=== PATIENT | male | born 1975 | race Caucasian/White ===

== ENCOUNTER 2025-01-05 05:04 | Emergency (ER) | payer MEDICAID ==
[~2025-01-05] VITALS: Ht 175.3 cm; Wt 81.8 kg
[2025-01-05 05:13] VITALS: BP 111/73; PULSE 76; RESP 17; TEMP 97.5; O2SAT 98
[2025-01-05] MEDS ORDERED: DOXY-354 PO (06:18)
== END 2025-01-05 06:48 | disposition home or self-care (01) ==
LOC: EMS 05:07
DX: S81.812D Laceration without foreign body, left lower leg, subsequent encounter (principal); F14.90 Cocaine use, unspecified, uncomplicated; F12.90 Cannabis use, unspecified, uncomplicated; F17.210 Nicotine dependence, cigarettes, uncomplicated; Z90.49 Acquired absence of other specified parts of digestive tract; X58.XXXD Exposure to other specified factors, subsequent encounter
CPT/HCPCS: 99283; Z7502